=== PATIENT | female | born 1995 | race Caucasian/White ===

== ENCOUNTER 2020-05-28 01:05 | Emergency (ER) | payer OTHER ==
[~2020-05-28] VITALS: Ht 170.2 cm; Wt 86.6 kg
[~2020-05-28 01:05] MED LIST: PREN-385 PO
[2020-05-28 01:21] VITALS: BP 133/75
--- NOTE | 2020-05-28 01:23 | NUR ---
PT TAKEN TO BED 4
--- NOTE | 2020-05-28 01:34 | NUR ---
24 Y/O FEMALE PRESENTS TO THE ER WITH C/O BILATERAL LOWER ABDOMINAL PAIN X 3 WEEKS. 02/21 PAIN. PT STATES SHE HAS HAD RECURRING CYCLES OF ABDOMINAL PAIN, FLUCTUATION BETWEEN CONSTIPATION, AND DIARRHEA. WITH NAUSEA, VOMITING WELL. DENIES SOB, COUGH, FEVER, INJURY TO ABDOMEN. NEG TTP. A&O X4, VSS, R/R EQUAL, AND UNLABORED. DENIES PMH NKDA
[2020-05-28] MEDS ORDERED: NACL 0.9% 1,000 ML IV ONE (01:35)
[2020-05-28] MEDS ORDERED: ONDANSETRON 4 MG/2 ML VIAL IVP ONE (01:35)
[2020-05-28 01:46] LABS: BASOPHILS % (AUTO) 0.4 % (0.0-2.0); EOSINOPHILS # (AUTO) 0.2 K/uL (0-0.4); EOSINOPHILS % (AUTO) 2.3 % (0.0-4.0); HEMATOCRIT 38.9 % (36-48); HEMOGLOBIN 13.1 g/dL (12.0-16.0); LYMPHOCYTES # (AUTO) 2.5 K/uL (2.5-16.5); LYMPHOCYTES % (AUTO) 34.4 % (20.5-51.1); MEAN CORPUSCULAR HEMOGLOBIN 29 pg (27-31); MEAN CORPUSCULAR HGB CONC 34 g/dL (33-37); MEAN CORPUSCULAR VOLUME 86.1 fL (80-94); MONOCYTES # (AUTO) 0.6 K/uL (0.8-1.0); MONOCYTES % (AUTO) 7.9 % (1.7-9.3); PLATELET COUNT (AUTO) 252 K/uL (140-450); RED BLOOD CELL COUNT(AUTO) 4.52 MIL/uL (4.20-5.40); RED CELL DISTRIBUTION WIDTH 13.2 % (11.6-13.7); WHITE BLOOD COUNT (AUTO) 7.3 K/uL (4.8-10.8)
--- NOTE | 2020-05-28 01:53 | NUR ---
Dr. De La Rosa examining patient.
[2020-05-28 02:00] LABS: ALBUMIN 3.9 g/dL (3.4-5.0); ANION GAP 12.1 (8-16); CARBON DIOXIDE 27.3 mmol/L (21-32); CREATININE 0.9 mg/dL (0.6-1.3); POTASSIUM 3.4 mmol/L (3.5-5.1); TOTAL BILIRUBIN 0.4 mg/dL (0.0-1.0)
[2020-05-28] MEDS ORDERED: KETOROLAC 30 MG/ML VIAL IVP ONE (02:00)
--- NOTE | 2020-05-28 02:36 | NUR ---
Lauren giles in ED - 05/28/20 at 0237 by MARGOTH XRAY AT BEDSIDE.
--- NOTE | 2020-05-28 03:31 | NUR ---
Patient discharged with v/s stable. Written and verbal after care instructions given and explained. Patient alert, oriented and verbalized understanding of instructions. Ambulatory with steady gait. All questions addressed prior to discharge. ID band removed. Patient advised to follow up with PMD. Rx of ZOFRAN, MOTRIN given. Patient educated on indication of medication including possible reaction and side effects. Opportunity to ask questions provided and answered.
[2020-05-28 03:37] VITALS: BP 133/75
== END 2020-05-28 03:31 | disposition home or self-care (01) ==
LOC: MED 01:05
DX: K58.9 Irritable bowel syndrome, unspecified (principal); R03.0 Elevated blood-pressure reading, without diagnosis of hypertension; J45.909 Unspecified asthma, uncomplicated; Z79.899 Other long term (current) drug therapy
CPT/HCPCS: 36415; 74022; 80053; 81002; 81025; 85025; 96361; 96374; 96375; 99284; J1885; J2405; J7030

== ENCOUNTER 2020-10-24 18:59 | Emergency (ER) | payer OTHER ==
[~2020-10-24] VITALS: Ht 170.2 cm; Wt 84.8 kg
[2020-10-24 19:16] VITALS: BP 128/78
[2020-10-24] MEDS ORDERED: ACETAMINOPHEN 325 MG TAB PO ONE (19:25)
--- NOTE | 2020-10-24 19:26 | NUR ---
PATIENT TAKEN TO CT VIA W/C.
--- NOTE | 2020-10-24 19:40 | NUR ---
25 Y/O FEMALE BIB SELF FOR C/O DICKENS 03/24 SINCE 0520AM. PER PATIENT PAIN IS MOSTLY ON LEFT SIDE AND NOW STATES THAT SHE HAS BLURRY VISION. PERRLA 3 MM BRISK PUPILS, PERRLA. DENIES TAKING ANY OTC MEDS PRIOR TO ED VISIT. MEDHX: ASTHMA NKA
--- NOTE | 2020-10-24 19:51 | NUR ---
PATIENT AMBUALTED TO BED 11 WITH STEADY GAIT.
[2020-10-24] MEDS ORDERED: KETOROLAC 60 MG/2 ML VIAL IM ONE (20:30)
--- NOTE | 2020-10-24 20:30 | NUR ---
ERMD ASSESSING PATIENT AT BEDSIDE.
[2020-10-24 21:01] LABS: APPEARANCE,URINE CLEAR (CLEAR); BILIRUBIN,URINE NEGATIVE (NEGATIVE); BLOOD, URINE 1+ (NEGATIVE); COLOR,URINE YELLOW (YELLOW); LEUKOCYTE ESTERASE ,URINE TRACE (NEGATIVE); NITRITE, URINE POSITIVE (NEGATIVE); PH,URINE 6.5 (5.0-9.0); UGLUCOSE NEGATIVE (NEGATIVE)
[2020-10-24 21:05] LABS: RBC,URINE 11-20 (MOD) /HPF (0-5)
[2020-10-24] MEDS ORDERED: NITR100C7 PO (21:34)
--- NOTE | 2020-10-24 21:38 | NUR ---
Patient discharged with v/s stable. Written and verbal after care instructions given and explained BY ANA MRAIA MARTIN. Patient alert, oriented and verbalized understanding of instructions. Ambulatory with steady gait. All questions addressed prior to discharge BY ANA MARIA MARTIN. ID band removed. Patient advised to follow up with PMD. Rx of MACROBID given. Patient educated on indication of medication including possible reaction and side effects. Opportunity to ask questions provided and answered.
== END 2020-10-24 21:38 | disposition home or self-care (01) ==
LOC: MED 18:59
DX: N39.0 Urinary tract infection, site not specified (principal); R51.9 Headache, unspecified; M54.2 Cervicalgia; J45.909 Unspecified asthma, uncomplicated
CPT/HCPCS: 70450; 81001; 81025; 87086; 96372; 99284; J1885

== ENCOUNTER 2020-12-19 06:35 | Emergency (ER) | payer OTHER ==
[~2020-12-19] VITALS: Ht 167.6 cm; Wt 86.2 kg
[~2020-12-19 06:35] MED LIST changes: +NITR100C7 PO
[2020-12-19 06:43] VITALS: BP 108/65
--- NOTE | 2020-12-19 06:50 | NUR ---
PATIENT AMBULATED TO RESTROOM TO COLLECT URINE SAMPLE.
--- NOTE | 2020-12-19 06:54 | NUR ---
ERMD AT TRIAGE PERFORMING ASSESSMENT.
[2020-12-19] MEDS ORDERED: ACETAMINOPHEN EXTRA STRENGTH 500 MG TAB PO ONE (06:55)
[2020-12-19] MEDS ORDERED: ONDANSETRON 4 MG ODT PO ONE (06:55)
--- NOTE | 2020-12-19 06:55 | NUR ---
PATIENT BIB SELF FOR C/O N/V X 5 DAYS. A & O X4. PATIENT REPORTS HEADACHE, PAIN 7/10. PATIENT DENIES TAKING MEDICATION AT HOME FOR PAIN. ACTIVE BOWEL SOUNDS X 4. PATIENT DENIES BLOOD IN EMESIS. PATIENT DENIES DIARRHEA, CP, SOB, FEVER, CHILLS. SEE COMPLETE ASSESSMENT FOR FURTHER DETAILS. MED HX: DENIES ALLERGIES: NKA
--- NOTE | 2020-12-19 06:55 | NUR ---
PT AMBULATED TO BED 06.
[2020-12-19] MEDS ORDERED: ONDA-24 SL (07:02)
[2020-12-19 07:06] VITALS: BP 108/65
== END 2020-12-19 07:06 | disposition home or self-care (01) ==
LOC: MED 06:35
DX: R11.2 Nausea with vomiting, unspecified (principal); R10.30 Lower abdominal pain, unspecified; J45.909 Unspecified asthma, uncomplicated
CPT/HCPCS: 81002; 81025; 99283; Q0162

== ENCOUNTER 2023-06-20 22:14 | Emergency (ER) | payer OTHER ==
[~2023-06-20] VITALS: Ht 170.2 cm; Wt 81.6 kg
[~2023-06-20 22:14] MED LIST changes: +ONDA-188 SL
[2023-06-20 22:19] VITALS: BP 111/71; PULSE 109; RESP 24; TEMP 97.4; O2SAT 100
[2023-06-20] MEDS ORDERED: LORazepam 1 MG TAB PO ONE (22:45)
[2023-06-21] MEDS ORDERED: ACETAMINOPHEN EXTRA STRENGTH 500 MG TAB PO ONE (00:20)
[2023-06-21 00:22] LABS: BASOPHILS % (AUTO) 0.2 % (0.0-2.0); EOSINOPHILS % (AUTO) 0.1 % (0.0-4.0); HEMATOCRIT 42.3 % (36-48); HEMOGLOBIN 14.2 g/dL (12.0-16.0); LYMPHOCYTES # (AUTO) 1.1 K/uL (2.5-16.5); LYMPHOCYTES % (AUTO) 10.7 % (20.5-51.1); MEAN CORPUSCULAR HEMOGLOBIN 28 pg (27-31); MEAN CORPUSCULAR HGB CONC 34 g/dL (33-37); MEAN CORPUSCULAR VOLUME 82.8 fL (80-94); MONOCYTES # (AUTO) 0.9 K/uL (0.8-1.0); MONOCYTES % (AUTO) 8.8 % (1.7-9.3); NEUTROPHILS % (AUTO) 80.2 % (42.2-75.2); PLATELET COUNT (AUTO) 215 K/uL (140-450); RED BLOOD CELL COUNT(AUTO) 5.11 MIL/uL (4.20-5.40); RED CELL DISTRIBUTION WIDTH 14.4 % (11.6-13.7)
[2023-06-21 01:14] LABS: ANION GAP 14.4 (8-16); CALCIUM 8.6 mg/dL (8.5-10.1); CARBON DIOXIDE 25.1 mmol/L (21-32); POTASSIUM 3.5 mmol/L (3.5-5.1)
[2023-06-21 02:22] LABS: APPEARANCE,URINE CLEAR (CLEAR); BILIRUBIN,URINE 1+ (NEGATIVE); BLOOD, URINE TRACE-I (NEGATIVE); COLOR,URINE YELLOW (YELLOW); LEUKOCYTE ESTERASE ,URINE 1+ (NEGATIVE); NITRITE, URINE NEGATIVE (NEGATIVE); PROTEIN,URINE 1+ (NEGATIVE); UGLUCOSE NEGATIVE (NEGATIVE)
[2023-06-21 02:25] LABS: ICTOTEST POSITIVE (NEGATIVE)
[2023-06-21 02:26] LABS: BACTERIA,URINE >30 (MANY) /HPF (None Seen); MUCUS,URINE 1+ /LPF (None Seen); SQUAMOUS EPITHELIAL CELL,UR 4-10 (MOD) /LPF (0-3 (FEW)); WBC,URINE 60-80 /HPF (0-5)
[2023-06-21 02:33] VITALS: O2SAT 97
[2023-06-21] MEDS ORDERED: CEPH-588 PO (03:04)
[2023-06-21] MEDS ORDERED: ACET-10509 PO (03:04)
[2023-06-21 03:21] VITALS: BP 104/68; PULSE 89; RESP 11; TEMP 98.5; O2SAT 99
[2023-06-21 03:26] LABS: FLU A ANTIGEN negative (NEGATIVE); FLU B ANTIGEN NEGATIVE (NEGATIVE)
[2023-06-21 11:25] LABS: AMPHETAMINE, URINE NEGATIVE ng/ml (NEG <=1000); BARBITURATE, URINE NEGATIVE ng/ml (NEG <=200); BENZODIAZEPINE, URINE NEGATIVE ng/mL (NEG <=200); CANNABINOID, URINE POSITIVE ng/mL (NEG <=50); COCAINE, URINE NEGATIVE ng/mL (NEG <=300); OPIATE, URINE NEGATIVE ng/mL (NEG <=2000); PHENCYCLIDINE SCREEN,URINE NEGATIVE ng/mL (NEG <=25)
== END 2023-06-21 03:13 | disposition home or self-care (01) ==
LOC: MED 22:14
DX: R07.9 Chest pain, unspecified (principal); Z20.822 Contact with and (suspected) exposure to COVID-19; N39.0 Urinary tract infection, site not specified; R50.9 Fever, unspecified; J45.909 Unspecified asthma, uncomplicated; Z79.899 Other long term (current) drug therapy
CPT/HCPCS: 36415; 71045; 80048; 80305; 81001; 84484; 85025; 87086; 93005; 99285